=== PATIENT | female | born 1995 | race Caucasian/White ===

== ENCOUNTER 2018-01-25 00:04 | Emergency (ER) | payer SELFPAY ==
[2018-01-25 00:08] VITALS: BP 132/95
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
== END 2018-01-25 00:44 ==
LOC: ER 00:11
DX: F10.920 Alcohol use, unspecified with intoxication, uncomplicated (principal); R04.0 Epistaxis
CPT/HCPCS: 99281